=== PATIENT | female | born 1970 | race Caucasian/White ===

== ENCOUNTER 2016-11-15 09:41 | Emergency (ER) | payer MEDICAID ==
[2016-11-15] MEDS ORDERED: NS 1,000 ML IV ONE (09:56)
[2016-11-15] MEDS ORDERED: ONDANSETRON 4 MG/2 ML VIAL IVP ONE (09:57)
[2016-11-15 10:00] VITALS: O2SAT 97
[2016-11-15 10:13] LABS: % IMMATURE GRANULYOCYTES 0.2 % (0.0-1.1); ABSOLUTE IMMATURE GRANULOCYTES 0.02 10^3/uL (0.00-0.10); ADD DIFF? NO; ADD MORPH? NO; ADD SCAN? NO; ATYPICAL LYMPHOCYTE FLAG 20 (0-99); FRAGMENT RBC FLAG 0 (0-99); HEMATOCRIT 43.9 % (38.0-47.0); HEMOGLOBIN 14.6 g/dL (12.6-16.3); LEFT SHIFT FLG 0 (0-99); LIPEMIA HEMOLYSIS FLAG 80 (0-99); MEAN CELL HEMOGLOBIN 30.4 pg (27.9-34.1); MEAN CELL HEMOGLOBIN CONCENTR. 33.3 g/dL (32.4-36.7); MEAN CELL VOLUME 91.3 fL (81.5-99.8); MEAN PLATELET VOLUME 12.3 fL (8.7-11.7); PLATELET CLUMPS FLAG 0 (0-99); PLATELET COUNT 232 10^3/uL (150-400); RED BLOOD CELL COUNT 4.81 10^6/uL (4.18-5.33); RED CELL DISTRIBUTION WIDTH 13.2 % (11.5-15.2)
[2016-11-15 10:16] LABS: COLOR YELLOW; LEUKOCYTE ESTERASE,URINE NEGATIVE (NEGATIVE); NITRITE,URINE NEGATIVE (NEGATIVE)
[2016-11-15 10:26] LABS: ALANINE AMINOTRANSFERASE 51 IU/L (9-52); ALBUMIN 4.4 g/dL (3.5-5.0); ALKALINE PHOSPHATASE 89 IU/L (38-126); ANION GAP 12 mEq/L (8-16); ASPARTATE AMINOTRANSFERASE 33 IU/L (14-46); BILIRUBIN,TOTAL 0.7 mg/dL (0.1-1.4); BILIRUBIN-CONJUGATED 0.3 mg/dL (0.0-0.5); BILIRUBIN-UNCONJUGATED 0.4 mg/dL (0.0-1.1); CALCIUM 9.3 mg/dL (8.5-10.4); CARBON DIOXIDE 23 mEq/l (22-31); CHLORIDE 102 mEq/L (97-110); CREATININE 0.7 mg/dL (0.6-1.0); GLOMERULAR FILTRATION RATE > 60; GLUCOSE 104 mg/dL (70-100); POTASSIUM 3.8 mEq/L (3.5-5.2); SODIUM 137 mEq/L (134-144); TOTAL PROTEIN 7.5 g/dL (6.3-8.2)
[2016-11-15] MEDS ORDERED: IOPAMIDOL (ISOVUE-300) 100 ML BTL IV ONE (10:50)
--- NOTE | 2016-11-15 11:33 | EDPHY ---
H & P Stated Complaint: lower back pain Source: Patient Exam Limitations: No limitations - Personal History LMP (Females 10-55): 8-14 Days Ago Current Tetanus/Diphtheria Vaccine: Yes Current Tetanus Diphtheria and Acellular Pertussis (TDAP): Yes - Medical/Surgical History Hx Asthma: No Hx Chronic Respiratory Disease: No Hx Diabetes: No Hx Cardiac Disease: No Hx Renal Disease: No Hx Cirrhosis: No Hx Alcoholism: No Hx HIV/AIDS: No Hx Splenectomy or Spleen Trauma: No Other PMH: depression GERD - Social History Smoking Status: Never smoked HPI/ROS: CHIEF COMPLAINT: Back pain, abdominal pain HISTORY OF PRESENT ILLNESS: one-week history of low back pain. It is gradual onset, constant duration. Steadily worsening to severe at this time. It is left and right of midline but not midline at any point. It radiates into the abdomen. There is no vaginal bleeding or discharge. No pelvic pain. Nausea but no vomiting. No trauma to the abdomen or back. No numbness or tingling. No weakness. Seen at urgent care yesterday with urinalysis that was reportedly normal. No further workup was done. Worse with any kind of palpation or movement. No radiating pain other than to the abdomen. No numbness or tingling of the genital or saddle. No weakness of the lower extremities. No fever or chills. No IV drug use. No other associated complaints or modifying factors. Does have a history of IBS but has not seen a specialist for this. REVIEW OF SYSTEMS: Ten systems reviewed and are negative unless otherwise noted in the HPI EXAMINATION General Appearance: Alert, no distress Head: normocephalic, atraumatic Eyes: Pupils equal and round, no conjunctival pallor or injection ENT, Mouth: Mucous membranes moist . Uvula midline. No erythema or edema. Neck: Normal inspection, supple, non-tender Respiratory: Lungs are clear to auscultation . No wheezing, rhonchi or crackles. Cardiovascular: Regular rate and rhythm . No murmur. Pulses intact distally. Gastrointestinal: Abdomen is soft With mild tenderness in the lower quadrants. No point tenderness of the right lower quadrant. Negative Rovsing. No tympany. No rigidity. Negative heel jar. Negative obturator. Back: Mild tenderness of the soft tissue of the back bilaterally. There is no midline tenderness at any level of the spine. No crepitus, step-off or deformity. Neurological: A&O, nonfocal, normal gait. Symmetric patellar reflexes 2+ Skin: Warm and dry, no rash Extremities: Nontender, no pedal edema Psychiatric: Mood and affect normal DIFFERENTIAL DIAGNOSES: Including but not limited to Pyelonephritis, renal colic, ureteral stone, ovarian cysts, enteritis, irritable bowel, Crohn's, diverticulitis, colitis MDM: Abdominal low back pain of several days duration. She has no urinary complaints. Nausea but no vomiting. No chest pain or abdominal trauma. Urinalysis from urgent care yesterday is within normal limits. No other studies were done. Labs and CT scan are pending at this time. CT scan is unremarkable. There is noted incidental finding on the left, uncomplicated ovarian cyst. There is no pelvic fluid. No acute findings otherwise. Laboratory studies are well within normal limits. Vital signs are stable. She feels much better after the IV medication she was administered here. She will be discharged home with pain medication, muscle relaxant and referral to GI physician for her reports of inflammatory bowel /irritable bowel. She is comfortable with this plan and discharged home in stable condition. SUPERVISION: Patient was evaluated in conjunction with the supervising physician. Please see their note for details. (Richi Gonzalez) Constitutional: Initial Vital Signs Temperature (C) 99.1 F 11/15/16 09:45 Heart Rate 111 H 11/15/16 09:45 Respiratory Rate 16 11/15/16 09:45 Blood Pressure 135/91 H 11/15/16 09:45 O2 Sat (%) 97 11/15/16 09:45 O2 Delivery Mode Room Air Allergies/Adverse Reactions: No Known Allergies Allergy (Unverified 11/15/16 09:48) Home Medications: Medication Instructions Recorded Cyclobenzaprine [Flexeril 10 MG 10 mg PO TID PRN #15 tab 11/15/16 (*)] oxyCODONE HCL/ACETAMINOPHEN 1 each PO Q4-6PRN PRN #15 tablet 11/15/16 [Percocet 5-325 mg Tablet] Medical Decision Making Other Provider: On my evaluation this patient has a benign abdomen. She is nontoxic-appearing. She complains of having diarrhea for several months. I recommended she follow up with Gastroenterology. Will treat her with pain medication until she can be seen. She is started been still yesterday without significant improvement. Lab work and CT imaging are reassuring. (Leonardo Lowry) - Data Points Laboratory Results: Laboratory Results 11/15/16 10:02 11/15/16 10:02 11/15/16 11/15/16 11/15/16 10:02 10:02 10:02 WBC RBC Hgb Hct MCV MCH MCHC RDW Plt Count MPV Neut % (Auto) Lymph % (Auto) [facility] % (Auto) Eos % (Auto) Baso % (Auto) Nucleat RBC Rel Count Absolute Neuts (auto) Absolute Lymphs (auto) Absolute Monos (auto) Absolute Eos (auto) Absolute Basos (auto) Absolute Nucleated RBC Immature Gran % Immature Gran # Sodium 137 mEq/L mEq/L (134-144) Potassium 3.8 mEq/L mEq/L (3.5-5.2) Chloride 102 mEq/L mEq/L (97-110) Carbon Dioxide 23 mEq/l mEq/l (22-31) Anion Gap 12 mEq/L mEq/L (8-16) BUN 14 mg/dL mg/dL (7-23) Creatinine 0.7 mg/dL mg/dL (0.6-1.0) Estimated GFR > 60 Glucose 104 mg/dL H mg/dL (70-100) Calcium 9.3 mg/dL mg/dL (8.5-10.4) Total Bilirubin 0.7 mg/dL mg/dL (0.1-1.4) Conjugated Bilirubin 0.3 mg/dL mg/dL (0.0-0.5) Unconjugated Bilirubin 0.4 mg/dL mg/dL (0.0-1.1) AST 33 IU/L IU/L (14-46) ALT 51 IU/L IU/L (9-52) Alkaline Phosphatase 89 IU/L IU/L (38-126) Total Protein 7.5 g/dL g/dL (6.3-8.2) Albumin 4.4 g/dL g/dL (3.5-5.0) Lipase 121.0 IU/L IU/L (23-300) Beta HCG, Qual NEGATIVE Urine Color YELLOW Urine Appearance CLEAR Urine pH 7.0 (5.0-7.5) Ur Specific [place] 1.012 (1.002-1.030) Urine Protein NEGATIVE (NEGATIVE) Urine Ketones NEGATIVE (NEGATIVE) Urine Blood NEGATIVE (NEGATIVE) Urine Nitrate NEGATIVE (NEGATIVE) Urine Bilirubin NEGATIVE (NEGATIVE) Urine Urobilinogen NEGATIVE EU EU (0.2-1.0) Ur Leukocyte Esterase NEGATIVE (NEGATIVE) Ur Culture Indicated? NOT INDICATED (NI) Urine Glucose NEGATIVE (NEGATIVE) 11/15/16 10:02 WBC 8.96 10^3/uL 10^3/uL (3.80-9.50) RBC 4.81 10^6/uL 10^6/uL (4.18-5.33) Hgb 14.6 g/dL g/dL (12.6-16.3) Hct 43.9 % % (38.0-47.0) MCV 91.3 fL fL (81.5-99.8) MCH 30.4 pg pg (27.9-34.1) MCHC 33.3 g/dL g/dL (32.4-36.7) RDW 13.2 % % (11.5-15.2) Plt Count 232 10^3/uL 10^3/uL (150-400) MPV 12.3 fL H fL (8.7-11.7) Neut % (Auto) 75.3 % H % (39.3-74.2) Lymph % (Auto) 16.3 % % (15.0-45.0) [facility] % (Auto) 7.3 % % (4.5-13.0) Eos % (Auto) 0.6 % % (0.6-7.6) Baso % (Auto) 0.3 % % (0.3-1.7) Nucleat RBC Rel Count 0.0 % % (0.0-0.2) Absolute Neuts (auto) 6.75 10^3/uL H 10^3/uL (1.70-6.50) Absolute Lymphs (auto) 1.46 10^3/uL 10^3/uL (1.00-3.00) Absolute Monos (auto) 0.65 10^3/uL 10^3/uL (0.30-0.80) Absolute Eos (auto) 0.05 10^3/uL 10^3/uL (0.03-0.40) Absolute Basos (auto) 0.03 10^3/uL 10^3/uL (0.02-0.10) Absolute Nucleated RBC 0.00 10^3/uL 10^3/uL (0-0.01) Immature Gran % 0.2 % % (0.0-1.1) Immature Gran # 0.02 10^3/uL 10^3/uL (0.00-0.10) Sodium Potassium Chloride Carbon Dioxide Anion Gap BUN Creatinine Estimated GFR Glucose Calcium Total Bilirubin Conjugated Bilirubin Unconjugated Bilirubin AST ALT Alkaline Phosphatase Total Protein Albumin Lipase Beta HCG, Qual Urine Color Urine Appearance Urine pH Ur Specific [place] Urine Protein Urine Ketones Urine Blood Urine Nitrate Urine Bilirubin Urine Urobilinogen Ur Leukocyte Esterase Ur Culture Indicated? Urine Glucose Medications Given: Discontinued Medications Sodium Chloride (Ns) 1,000 mls @ 0 mls/hr IV ONCE ONE PRN Reason: Wide Open Stop: 11/15/16 09:57 Last Admin: 11/15/16 10:33 Dose: 1,000 mls Morphine Sulfate (Morphine) 6 mg IVP EDNOW ONE Stop: 11/15/16 09:58 Last Admin: 11/15/16 10:33 Dose: 6 mg Ondansetron HCl (Zofran) 4 mg IVP EDNOW ONE Stop: 11/15/16 09:58 Last Admin: 11/15/16 10:34 Dose: 4 mg Departure - Departure Disposition: Home, Routine, Self-Care Clinical Impression: Back pain Qualifiers: Back pain location: low back pain Chronicity: acute Back pain laterality: bilateral Sciatica presence: without sciatica Qualified Code(s): M54.5 - Low back pain Abdominal pain Qualifiers: Abdominal location: generalized Qualified Code(s): R10.84 - Generalized abdominal pain Irritable bowel Qualifiers: Irritable bowel syndrome type: with diarrhea Qualified Code(s): K58.0 - Irritable bowel syndrome with diarrhea Condition: Good Instructions: Irritable Bowel Syndrome (ED), Abdominal Pain (ED), Musculoskeletal Pain (ED) Additional Instructions: follow-up with primary care physician and GI specialist for ongoing care. Prescriptions as needed Referrals: Deb Zamora DO [Primary Care Provider] - As per Instructions Oh Abdullahi MD [Medical Doctor] - As per Instructions Prescriptions: Cyclobenzaprine [Flexeril 10 MG (*)] 10 mg PO TID PRN #15 tab PRN Reason: Spasms oxyCODONE HCL/ACETAMINOPHEN [Percocet 5-325 mg Tablet] 1 each PO Q4-6PRN PRN # 15 tablet PRN Reason: Pain, Breakthrough
[2016-11-15 12:35] VITALS: BP 111/74; PULSE 80; RESP 18; TEMP 98.2
== END 2016-11-15 12:35 | disposition home or self-care (01) ==
DX: M54.5 Low back pain (principal); K58.0 Irritable bowel syndrome with diarrhea
CPT/HCPCS: 96374; J2405; Q9967

== ENCOUNTER 2016-12-04 09:41 | Day surgery (SDC) | payer MEDICAID ==
[2016-12-04] MEDS ORDERED: LIDOCAINE 1% 5 ML SDV ID PRN (10:29)
[2016-12-04] MEDS ORDERED: LR 1,000 ML IV ONE (10:29)
[2016-12-04] MEDS ORDERED: LIDOCAINE 2% 100 MG/5 ML SYR IVP ONE (10:53)
[2016-12-04] MEDS ORDERED: PROPOFOL 200 MG/20 ML VIAL ONE ×2 (10:53→11:00)
--- NOTE | 2016-12-04 12:17 | GPN ---
PREPROCEDURE DIAGNOSIS: Heartburn and epigastric abdominal pain. POSTPROCEDURE DIAGNOSIS: Gastritis. PROCEDURES: Esophagogastroduodenoscopy with biopsies. MEDICATIONS: Monitored anesthesia care. INDICATIONS: The patient is a 46-year-old female with a history of heartburn, intermittent dysphagia, bloating and intermittent epigastric abdominal pain. She is here for upper endoscopy for evaluation. The risks and benefits of the procedure were discussed with the patient. Consent obtained. Risks include, but are not limited to, bleeding, perforation, sedation. The patient is ASA class 2. DESCRIPTION OF PROCEDURE: The end-viewing endoscope was inserted into the esophagus, into the stomach and 2nd portion of the duodenum. The esophagus appears normal. The GE junction is located at 38 cm from the incisors. There was no evidence of Gilbert's, esophagitis or varices. There is some mild to moderate gastritis along the greater curvature and along the gastric antrum consistent with erosions and erythema. Biopsies were taken with cold biopsy forceps to evaluate for Helicobacter pylori. The duodenum and second portion were normal. Biopsies were taken to evaluate for celiac disease. IMPRESSION: [id number] gastritis status post biopsies. RECOMMENDATIONS: 1. Discharge home with escort. 2. Advance diet as tolerated. 3. Continue current medications. 4. Follow up the final biopsy results which are available within 7-10 days. 5. Follow up in GI clinic with myself in a few weeks to discuss further treatment and management. Thank you for allowing me to participate in the care of your patient. Please do not hesitate to call with questions. /[id number]/MODL MTDD
== END 2016-12-04 14:05 | disposition home or self-care (01) ==
LOC: FSGY 09:41
PROVIDERS: ATTEND Internal Medicine Gastroenterology
PROC: 0DB68ZX Excision of Stomach, Via Natural or Artificial Opening Endoscopic, Diagnostic (ICD-10-PCS; principal; 2016-12-04 11:30)
PROC: 0DB98ZX Excision of Duodenum, Via Natural or Artificial Opening Endoscopic, Diagnostic (ICD-10-PCS; principal; 2016-12-04 11:30)
DX: R10.13 Epigastric pain (principal); R11.2 Nausea with vomiting, unspecified; R13.10 Dysphagia, unspecified; R19.7 Diarrhea, unspecified; M54.5 Low back pain
CPT/HCPCS: J2001; J2704